=== PATIENT | male | born 2000 | race Two or more races ===

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

== ENCOUNTER 2020-03-09 16:33 | Emergency (ER) | payer SELFPAY ==
[~2020-03-09] VITALS: Ht 165.1 cm; Wt 90.7 kg
[2020-03-09 17:20] LABS: Basophils # (auto) 0 10 ^3/uL (0-0.2); Basophils % (auto) 0.4 % (0.0-2.0); Eosinophils # (auto) 0 10 ^3/uL (0-0.8); Eosinophils % (auto) 0.1 % (0.0-7.0); Hematocrit 46.3 % (41.0-53.0); Hemoglobin 16.1 g/dL (13.5-17.5); Lymphocytes # (auto) 1.6 10 ^3/uL (0.4-5.4); Lymphocytes % (auto) 16.2 % (10.0-50.0); Mean Corpuscular Hemoglobin 30.4 pg (28.0-32.0); Mean Corpuscular Hgb Conc. 34.8 g/dL (32.0-36.0); Mean Corpuscular Volume 87.5 fL (80.0-100.0); Monocytes # (auto) 0.9 10 ^3/uL (0-1.3); Monocytes % (auto) 9.2 % (0.0-12.0); Neutrophils # (auto) 7.3 10 ^3/uL (1.6-8.6); Neutrophils % (auto) 74.1 % (37.0-80.0); Nucleated Red Blood Cells % 0.1 %; Platelet Count (auto) 306 10^3/uL (140-450); Red Blood Cells 5.29 10^6/uL (4.5-5.90); Red Cell Distribution Width 12.6 % (11.8-14.3); White Blood Cell 9.9 10^3/uL (4.4-10.8)
[2020-03-09 17:37] LABS: Albumin 4.7 g/dL (3.4-5.0); Anion Gap 9 (5-15); Blood Alcohol < 3.0 mg/dL (0-5); Blood Urea Nitrogen 9 mg/dL (7-18); Calcium 9.2 mg/dL (8.5-10.1); Carbon Dioxide 24 mmol/L (21-32); Chloride 106 mmol/L (98-107); Glucose 116 mg/dL (74-106); Magnesium 2.3 mg/dL (1.6-2.6); Salicylate < 1.7 mg/dL (2.8-20.0); Sodium 139 mmol/L (136-145)
[2020-03-09 17:46] LABS: Alanine Aminotransferase 43 U/L (16-61); Alkaline Phosphatase 119 U/L (45-117); Aspartate Aminotransferase 29 U/L (15-37); BUN/Creatinine Ratio 8.6; Bilirubin, Total 1.2 mg/dL (0.2-1.0); GFR African American 116 mL/min; GFR Non-African American 96 mL/min; Total Protein 8.4 g/dL (6.4-8.2)
[2020-03-09 17:49] LABS: Acetaminophen < 2.0 ug/mL (10-30)
[2020-03-09 17:57] LABS: Urine Bacteria NONE SEEN /hpf (None Seen); Urine Blood Negative /uL (Negative); Urine Mucus MODERATE (None Seen); Urine Specific Gravity 1.032 (1.001-1.035); Urine WBC 1 /hpf (0 - 3)
[2020-03-09 18:16] LABS: Alcohol, Urine < 3.0 mg/dL (0-10); Amphetamine Screen, Urine NEGATIVE (NEGATIVE); Barbiturate Scree,Urine NEGATIVE (NEGATIVE); Benzodiazephine Screen, Urine NEGATIVE (NEGATIVE); Cannabinoid Screen, Urine POSITIVE (NEGATIVE); Cocaine Screen, Urine NEGATIVE (NEGATIVE); Opiate Scree,Urine NEGATIVE (NEGATIVE); Phencyclidine Screen, Urine NEGATIVE (NEGATIVE)
[2020-03-09] MEDS ORDERED: POTASSIUM CHL 20 Meq TABLET PO ONE (18:45)
[2020-03-09] MEDS ORDERED: diphenhdrAMINE HCL 50 MG/1 ML VL IM ONE (21:30)
[2020-03-09] MEDS ORDERED: LORazepam 2MG/ML-1ML VIAL IM ONE (21:30)
[2020-03-10] MEDS ORDERED: LORazepam 2MG/ML-1ML VIAL IM ONE (04:15)
[2020-03-10] MEDS ORDERED: HALOPERIDOL LACTATE 5 MG/ML INJ VIAL IM ONE (04:15)
[2020-03-10] MEDS ORDERED: diphenhdrAMINE HCL 50 MG/1 ML VL IM ONE (04:15)
[2020-03-10] MEDS ORDERED: diphenhdrAMINE HCL 50 MG/1 ML VL ONE (04:17)
[2020-03-10] MEDS ORDERED: LORazepam 2MG/ML-1ML VIAL ONE (04:17)
[2020-03-10] MEDS ORDERED: HALOPERIDOL LACTATE 5 MG/ML INJ VIAL ONE (04:18)
[2020-03-10] MEDS ORDERED: LORazepam 0.5 MG TAB PO PRN (13:00)
[2020-03-10] MEDS ORDERED: HALOPERIDOL LACTATE 5 MG/ML INJ VIAL IM PRN (13:00)
[2020-03-10] MEDS: OLANZapine 5 MG TAB PO SCH (21:49)
[2020-03-11] MEDS: OLANZapine 5 MG TAB PO SCH ×2 (10:16→22:01)
[2020-03-12] MEDS: OLANZapine 5 MG TAB PO SCH ×2 (09:54→22:28)
[2020-03-12] MEDS ORDERED: OLANZapine 5 MG TAB ONE (22:27)
[2020-03-13 00:25] VITALS: BP 124/81
== END 2020-03-13 00:31 | disposition home or self-care (01) ==
LOC: ER 16:33
DX: R44.3 Hallucinations, unspecified (principal); E87.6 Hypokalemia; F12.10 Cannabis abuse, uncomplicated
CPT/HCPCS: 36415; 80053; 80307; 80320; 80329; 81001; 83735; 85025; 96365; 96372; 99285; J1200; J1630; J2060